=== PATIENT | male | born 1990 | race Hispanic/Latino ===

== ENCOUNTER 2021-04-15 18:16 | Emergency (ER) | payer BC ==
[~2021-04-15] VITALS: Ht 175.3 cm; Wt 103.0 kg
[2021-04-15] MEDS ORDERED: SODIUM CHLORIDE 0.9% 1000ML 1,000 ML IV SCH (19:00)
[2021-04-15] MEDS ORDERED: DIPHENHYDRAMINE HCL INJ 50 MG/ML VIAL IV ONE (19:00)
[2021-04-15] MEDS ORDERED: METOCLOPRAMIDE HCL 10 MG/2ML VIAL IV ONE (19:00)
[2021-04-15] MEDS ORDERED: ACETAMINOPHEN 325 MG TAB PO ONE (19:00)
[2021-04-15] MEDS ORDERED: ACETAMINOPHEN 325 MG TAB ONE (19:21)
[2021-04-15] MEDS ORDERED: SODIUM CHLORIDE 0.9% 1000ML 1,000 ML ONE (19:21)
[2021-04-15] MEDS ORDERED: DIPHENHYDRAMINE HCL INJ 50 MG/ML VIAL ONE (19:21)
[2021-04-15] MEDS ORDERED: METOCLOPRAMIDE HCL 10 MG/2ML VIAL ONE (19:21)
[2021-04-15] MEDS ORDERED: IBUPROFEN600 MG PO (19:54)
[2021-04-15 20:17] VITALS: BP 149/87
== END 2021-04-15 20:17 | disposition home or self-care (01) ==
LOC: FSED 18:20
DX: B34.9 Viral infection, unspecified (principal); R51.9 Headache, unspecified
CPT/HCPCS: 87400; 96374; 96376; 99283; J1200; J2765; J7030